=== PATIENT | male | born 1935 | race Caucasian/White ===

== ENCOUNTER → 2022-01-17 08:18 | Outpatient (BNVA) | payer MEDICARE, SELFPAY | PROVIDERS: Visit Provider Orthopaedic Surgery | DX: M43.17 Spondylolisthesis, lumbosacral region (principal) | CPT/HCPCS: 72110; 99204 ==

== ENCOUNTER 2022-01-23 06:00 | Outpatient (CLI) | payer MEDICARE, SELFPAY | END 2022-01-23 06:01 | disposition home or self-care (01) | LOC: RT 02-09 11:06 | PROVIDERS: PCP Nurse Practitioner Family; Visit Provider Orthopaedic Surgery | DX: Z01.89 Encounter for other specified special examinations (principal) | CPT/HCPCS: 93005 ==

== ENCOUNTER 2022-01-30 05:58 | Day surgery (SDC) | payer MEDICARE, SELFPAY ==
[2022-01-23 10:53] VITALS: BMI 30.8
--- NOTE | 2022-01-23 11:05 | ECG_ITS ---
[facility] Test Date: 2022-01-23 Pat Name: Moshe Gates Department: Room: Gender: Male Fund Manager: : 1935 Requested By: Sam Jacobs Order Number: [id number] Iftikhar MD: Charlie Laurent M.D. Measurements Intervals [place] Rate: 72 P: 218 ND: 271 QRS: -9 QRSD: 152 T: 116 QT: 406 QTc: 447 Interpretive Statements ELECTRONIC ATRIAL PACEMAKER LEFT BUNDLE BRANCH BLOCK [120+ ms QRS DURATION, 80+ ms Q/S IN V1/V2, 85+ ms R IN I/aVL/V5/V6] No previous ECG available for comparison Electronically Signed On 01-23-2022 18:13:07 CDT by Charlie Laurent M.D. [id number]
[2022-01-23 11:35] LABS: Anion Gap 12.9 (5-19); Blood Urea Nitrogen 18 mg/dL (8-23); Calcium 9.2 mg/dL (8.5-10.5); Carbon Dioxide 30 mmol/L (22-29); Chloride 106 mmol/L (98-107); Glucose 114 mg/dL (65-115); Osmolality Calculated 303 mOsm/kg (285-295); Potassium 3.9 mmol/L (3.5-5.1); Sodium 145 mmol/L (136-145)
--- NOTE | 2022-01-23 16:12 | P.ANESASSM_ITS ---
Pre-Anesthetic Assessment Height/Weight: Height 1.7 m Weight 89.358 kg Preop Diagnosis: Spinal stenosis Operation Date: 01/30/22 10:20 Proposed Procedures p Stimulator Removal [id number] M43.17(Not Applicable) - Sam Chino DO Familial anesthetic complications: None Was Beta Geovanny taken within 24 hours: N/A Was Clonidine taken within 24 hours: N/A Social No alcohol and No tobacco Exam alert, oriented x 3, clear to auscultation bilaterally and regular rate & rhythm Airway Submandibular: within normal limits Cervical ROM: within normal limits Mallampati: Class I Dentition: chipped History/ROS No significant complaints Pulmonary Sleep Apnea (No CPAP) CV/HEM Coronary Artery Disease (s/p stent) and Hypertension EKG 01/23/22 ?Interpretive Statements ELECTRONIC ATRIAL PACEMAKER LEFT BUNDLE BRANCH BLOCK? [120+ ms QRS DURATION, 80+ ms Q/S IN V1/V2, 85+ ms R IN I/aVL/V5/V6] No previous ECG available for comparison [id number] S/P AVR METS > 4 None reported Hepatic None reported GI Gastroesophageal Reflux Disease (Well controlled ) Metabolic Diabetes Mellitus and Hyperlipidemia [facility] Lower Back Pain and Osteoarthritis/DJD Spinal stenosis Neuropsych None reported Anesthetic Plan ASA status: 3 Anesthesia: Anesthesia Evaluation and General Other: We discussed risk and benefits of general anesthesia including PONV, sore throat (sometimes severe), corneal abrasion, positioning and peripheral nerve injuries, life threatening allergic reaction, post operative ICU admission requiring prolonged intubation, stroke, heart attack, , and rare incidences of recall. Patient consents to proceed with general anesthesia. Risk of > 500 ml blood loss (7ml/kg in children): No Medications/Allergies Home Medications Medication Instructions Recorded Confirmed Last Taken Type aspirin 325 mg tablet,delayed 325 mg PO DAILY 01/17/22 01/23/22 01/21/22 History release (Ecotrin) betamethasone dipropionate 0.05 % 1 applic topical DAILY PRN Rash 01/17/22 01/23/22 Unknown History topical cream ergocalciferol (vitamin D2) 1,250 1,250 mcg PO DAILY 01/17/22 01/23/22 Unknown History mcg (50,000 unit) capsule glipizide 2.5 mg tablet, extended 2.5 mg PO DAILY 01/17/22 01/23/22 Unknown History release 24 hr hydrochlorothiazide 12.5 mg capsule 12.5 mg PO DAILY 01/17/22 01/23/22 Unknown History irbesartan 150 mg tablet 150 mg PO DAILY 01/17/22 01/23/22 Unknown History omeprazole 20 mg capsule,delayed 20 mg PO DAILY 01/17/22 01/23/22 Unknown Hi story release rosuvastatin 40 mg tablet (Crestor) 40 mg PO DAILY 01/17/22 01/23/22 Unknown H istory Allergies Allergy/AdvReac Type Severity Reaction Status Date / Time No Known Allergies Allergy Verified 01/23/22 10:49 [facility] Anesthesia Social History Smoking and tobacco status: never smoked Data Anesthesia : 01/23/22 11:04 BMP 01/23/22 11:04 Sodium 145 Potassium 3.9 Chloride 106 Carbon Dioxide 30 H BUN 18 Creatinine 1.1 Glucose 114 Calcium 9.2 Cardiac Studies: No Data to Display
[2022-01-30] VITALS (11 sets, daily range): BP systolic 84–144; BP diastolic 52–95; PULSE 79–97; RESP 12–18; TEMP 36.3–36.4; O2SAT 93–98
--- NOTE | 2022-01-30 | SCC_ITS ---
Procedure done: 1. removal of spinal cord stimulator 2. removal of battery for spinal cord stimulator 7.7 seconds of fluoroscopic guidance, for a cumulative dose of 3.7 mGy, was provided to Dr. Chino by the radiology department. C-arm images of the thoracic spine were saved for the patient's permanent record. [facility]
--- NOTE | 2022-01-30 | XR_ITS ---
WS: [id number] INTRAOPERATIVE TECHNIQUE: 3 Spot fluoroscopic images for intraoperative purposes. FLUOROSCOPY TIME: 7.7 seconds CLINICAL INFORMATION: removal of spinal cord stimulator COMPARISON: None. FINDINGS: Intraoperative images for removal of spinal CORD stimulator. XR/XR thoracic spine 1V [id number] IMPRESSION: Images obtained for intraoperative purposes.
[2022-01-30 06:28] LABS: Glucose Point of Care 115 mg/dL (70-110)
--- NOTE | 2022-01-30 06:33 | P.ANESUD_ITS ---
Pre-Anesthetic Update Pre-Anesthetic Assessment: Date of Surgery/Procedure: 01/30/22 Preop Viv gnosis: Failed spinal cord stimulator Proposed Procedure: Operation Date: 01/30/22 07:00 Proposed Procedures p Stimulator Removal 97151/24803 M43.17(Not Applicable) - Sam Chino, DO Any changes to Pre-Anesthetic Assessment?: No Last Intake: Intake Last Liquid Date 01/29/22 Last Liquid Time 19:00 Last Solid Date 01/29/22 Last Solid Time 19:00 Vitals: Temperature 97.6 F 01/30/22 06:05 Temperature Source Temporal Artery S can 01/30/22 06:05 Pulse Rate 86 01/30/22 06:05 Respiratory Rate 18 01/30/22 06:05 Blood Pressure 128/75 01/30/22 06:05 Blood Pressure Eileen n 92 01/30/22 06:05 Pulse Oximetry 98 01/30/22 06:05 Oxygen Delivery Me thod 01/30/22 06:11 Exam: Pre-Anes Outpt Exam: alert, oriented x 3, clear to auscultation bilaterally and regular rate & rhythm Other Pertinent Information: Other Pertinent Information: Discussed with patient possible MAC. I discussed with the patient risks, goals, and benefits of MAC and general anesthesia. We discussed spectrum of MAC anesthesia including conversion to general as well as possibility of recall of intraoperative stimuli including discomfort/pain. Patient agrees to proceed with MAC. Cardiac Studies: No Data to Display
[2022-01-30] MEDS: sodium chloride 0.9% 1,000 ML 30 ML IV (06:36)
--- NOTE | 2022-01-30 06:55 | W.PM.OPSUD ---
Surgery/Procedure H&P Update DATE OF PROCEDURE: January 30, 2022 DATE H&P PERFORMED: 01/17/22 H&P UPDATE INFORMATION: I have reviewed H&P completed within last 30 days, I have examined patient prior to procedure and No changes to prior documentation PREOP DIAGNOSIS: Failed spinal cord stimulator PLANNED PROCEDURE: Operation Date: 01/30/22 07:00 Proposed Procedures p Stimulator Removal 58137/77493 M43.17(Not Applicable) - Sam Chino DO
[2022-01-30] MEDS: ceFAZolin 2,000 MG in sodium chloride 0.9% (plus) 50 ML 100 MG IV (07:04)
[2022-01-30] MEDS: vancomycin 1,000 MG SDV 1000 MG XX (07:35)
--- NOTE | 2022-01-30 08:02 | P.OP_ITS ---
Operative Report Date of procedure: January 30, 2022 Pre-op diagnosis: Preop Diagnosis Failed spinal cord stimulator Post-op diagnosis: same Procedure done: 1. removal of spinal cord stimulator 2. removal of battery for spinal cord stimulator Surgeon: Sam Chino Associate Quality Engineer: Tio Omer Associate Quality Engineer: The operating room surgical technologist, Tio Omer, WING was needed for his expertise with spine surgery. He was important and necessary throughout the procedure to complete in a safe and timely manner. He assisted with patient positioning prepping and draping tissue retraction suctioning of the operative field protection of the critical structures and tissue closure Estimated blood loss (mL): 5 Procedure: 1. removal of spinal cord stimulator 2. removal of battery for spinal cord stimulator Patient was brought to the procedure after undergoing anesthesia patient was prepped and draped normal sterile fashion. All areas impingement well-padded. Skin incision made over the right flank where the battery was. The incision was made down to the battery. The battery was identified and removed. Wires were cut. Extension was brought to the neurostimulator. The skin incision made over where the wires were tied in. The wires were identified the 2 areas where the wires were tied were identified. The wires were then pulled and the neurostimulator was removed. Wounds irrigated closed with Vicryl and Monocryl suture. Sterile dressings were applied patient was transferred to the PACU in stable condition.
[2022-01-30] MEDS: ePHEDrine 50 mg/mL Inj IVP (08:15)
--- NOTE | 2022-01-30 14:10 | ANE.PACU2 ---
Inpatient post-anesthesia follow up: Airway intact: Yes Vital signs: Temperature 97.5 F Pulse Rate 79 Respiratory Rate 18 Blood Pressure 125/69 Pulse Oximetry 96 Oxygen Delivery Me thod Room Air Oxygen Flow Rate 6 Fraction of Inspir ed Oxygen Hydration adequate: Yes Nausea and vomiting: No Pain level: 1 Mental status: Baseline
== END 2022-01-30 09:14 | disposition home or self-care (01) ==
PROVIDERS: PCP Nurse Practitioner Family; Visit Provider Orthopaedic Surgery
PROC: (CPT 63662; principal; 2022-01-30 07:00)
DX: T85.193A Other mechanical complication of implanted electronic neurostimulator, generator, initial encounter (principal); G47.30 Sleep apnea, unspecified; I25.10 Atherosclerotic heart disease of native coronary artery without angina pectoris; Z95.5 Presence of coronary angioplasty implant and graft; I10 Essential (primary) hypertension; I44.7 Left bundle-branch block, unspecified; Z79.82 Long term (current) use of aspirin
CPT/HCPCS: 63662; 63688; 36415; 36416; 72020; 76000; 80048; 82962; J2370; J2405; J2704; J3010; J3370; J3490; J7030

== ENCOUNTER → 2022-02-14 10:27 | Outpatient (BNVA) | payer MEDICARE, SELFPAY | PROVIDERS: PCP Nurse Practitioner Family; Visit Provider Orthopaedic Surgery | DX: M43.17 Spondylolisthesis, lumbosacral region (principal); Z47.89 Encounter for other orthopedic aftercare | CPT/HCPCS: 99024 ==

== ENCOUNTER 2022-03-23 10:04 | Outpatient (CLI) | payer MEDICARE, SELFPAY ==
--- NOTE | 2022-03-23 10:15 | CT_ITS ---
WS: [id number] CT LUMBAR myelogram TECHNIQUE: CT myelogram of the lumbar spine with coronal and sagittal reformatted images. CLINICAL INFORMATION: M43.17 - Spondylolisthesis, lumbosacral region COMPARISON: MRI 2015 DLP: 1304.[address] scans at [facility] use at least one of these dose optimization techniques: automated e xposure control; mA and/or kV adjustment per patient size (includes targeted exams where dose is matc hed to clinical indication); or iterative reconstruction. FINDINGS: Mild lumbar curve. Exaggeration normal lumbar lordosis. Grade 1 anterolisthesis L5 on S1 measuring 8. 8 mm progressed compared to 2015. Prior bony fusion at this level. Chronic anterior wedging at T12 un changed. Mild chronic anterior wedging at L1 unchanged. Slight retrolisthesis L1 on L2. Vacuum disc p henomenon L1-L3. Slight anterolisthesis L4 on L5 is unchanged. Adrenal glands are normal. Infrarenal abdominal aortic aneurysm measuring 2.1 x 2.2 CM. Sigmoid diverticulosis. L1-L2: Slight retrolisthesis L1 on L2. Mild disc bulging with osteophytic ridging. Slight effacement of ventral thecal sac with impingement on the subarticular recess. Moderate bilateral foraminal narro wing. L2-L3: Disc desiccation has progressed at this level. Mild disc bulging with osteophytic ridging and vacuum disc phenomenon. Mild central canal stenosis with impingement LEFT subarticular recess. Mild L EFT foraminal narrowing. Moderate facet arthropathy. L3-L4: Mild disc bulging and osteophytic ridging. Moderate central canal stenosis. This appears uncha nged compared to previous. Impingement traversing L4 nerve roots bilaterally. Moderate facet arthropa thy ligamentum flavum hypertrophy. Mild LEFT foraminal narrowing. L4-L5: Slight anterolisthesis. Severe central canal stenosis and impingement traversing L5 nerve root s. Advanced facet arthropathy with ligamentum flavum hypertrophy. This appears unchanged from previou s. Moderate RIGHT foraminal narrowing impinges the exiting L4 nerve root. LEFT foramen is patent. RIG HT foraminal narrowing has progressed. L5-S1: Grade 1 anterolisthesis has progressed. This results in severe central canal stenosis with imp ingement on the cauda equina nerve rootlets. This is progressed compared to previous. Moderate bilate ral bony foraminal narrowing. Advanced facet arthropathy. Visualized pelvic bony structures: Normal. Paravertebral soft tissues: Normal. CT/CT lumbar spine wo/w con [id number] IMPRESSION: 1. Severe central canal stenosis L4-L5 and L5-S1. This is progressed at L5-S1. Progressed anterolisthesis L5-S1 with chronic spondylolysis measuring 9 mm wit h prior interbody and posterior bony fusion. 2. Moderate bilateral L5-S1 bony foraminal narrowing. Moderate RIGHT L3-L4 for aminal narrowing appears progressed. 3. Moderate central canal stenosis L3-L4 with narrowing of the LEFT subarticul ar recess appears stable. Mild LEFT L3-L4 foraminal narrowing. 4. No other remarkable interval changes.
--- NOTE | 2022-03-23 10:15 | IR_ITS ---
WS: [id number] MYELOGRAM LUMBAR SPINE Fluoroscopic guided lumbar myelogram CLINICAL INFORMATION: M43.17 - Spondylolisthesis, lumbosacral region COMPARISON: None. TECHNIQUE: The procedure, including risks, benefits, and complications, were discussed with the patie nt who agreed to proceed. A timeout was performed to confirm correct patient, procedure, and site. Using sterile technique, the patient was prepped and draped in the usual sterile fashion. After admin istration of local anesthesia using 1% preservative-free lidocaine and using fluoroscopic guidance, a 22-gauge spinal needle was advanced into the subarachnoid space at the L2-L3 level. Subsequently 12 cc of Omnipaque 240 was administered into the thecal sac. The needle was removed and hemostasis was a chieved. Spot fluoroscopic images were obtained. FLUOROSCOPIC TIME: 7min [id number] # of spot films: 6 Spot fluoroscopic images demonstrate: Osteopenia. Advanced spondylitic changes lumbar spine. Hypertro phic changes lumbar spine. Tortuous calcified aorta. Advanced multilevel degenerative disc disease wi th chronic anterior wedging in the lower thoracic and upper lumbar spine. Disc space narrowing throug hout the lumbar spine. Anterolisthesis L5 on S1 with prior fusion measuring [address] myelogram report for additional detail. IR/IR myelogram sp lumbar [id number] IMPRESSION: 1. Uncomplicated lumbar myelogram. 2. Please see CT report for anatomic detail.
[2022-03-23] MEDS: iohexol 240 mg/mL 50 mL Btl INTRATHECA (11:34)
== END 2022-03-23 10:05 | disposition home or self-care (01) ==
PROVIDERS: PCP Nurse Practitioner Family; Visit Provider Orthopaedic Surgery
DX: M43.17 Spondylolisthesis, lumbosacral region (principal); M48.061 Spinal stenosis, lumbar region without neurogenic claudication; M48.07 Spinal stenosis, lumbosacral region
CPT/HCPCS: 62304; 72133; Q9966

== ENCOUNTER → 2022-04-13 09:56 | Outpatient (BNVA) | payer MEDICARE, SELFPAY | PROVIDERS: PCP Nurse Practitioner Family; Visit Provider Orthopaedic Surgery | DX: M43.17 Spondylolisthesis, lumbosacral region (principal) | CPT/HCPCS: 99214 ==

== ENCOUNTER → 2022-05-10 14:06 | Outpatient (BNVA) | payer MEDICARE, SELFPAY | PROVIDERS: PCP Nurse Practitioner Family; Visit Provider Internal Medicine Cardiovascular Disease | DX: I42.8 Other cardiomyopathies (principal); G47.30 Sleep apnea, unspecified; Z95.0 Presence of cardiac pacemaker; D69.3 Immune thrombocytopenic purpura; Z95.2 Presence of prosthetic heart valve; E11.9 Type 2 diabetes mellitus without complications; Z79.84 Long term (current) use of oral hypoglycemic drugs; I44.7 Left bundle-branch block, unspecified; R94.31 Abnormal electrocardiogram [ECG] [EKG] | CPT/HCPCS: 93005; 99204 ==

== ENCOUNTER 2022-05-23 12:12 | Outpatient (CLI) | payer MEDICARE, SELFPAY | END 2022-05-23 12:13 | disposition home or self-care (01) | LOC: RT 05-29 12:13 | PROVIDERS: PCP Nurse Practitioner Family; Visit Provider Orthopaedic Surgery | DX: Z13.6 Encounter for screening for cardiovascular disorders (principal); I44.7 Left bundle-branch block, unspecified; Z95.0 Presence of cardiac pacemaker | CPT/HCPCS: 93005 ==

== ENCOUNTER 2022-05-29 15:27 | Inpatient (IN) | payer MEDICARE, SELFPAY ==
[2022-05-23 09:30] VITALS: BMI 31.6
--- NOTE | 2022-05-23 09:45 | ECG_ITS ---
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 Measurements Intervals [place] Rate: 73 P: 184 ID: [id number] QRS: -27 QRSD: 145 T: 124 QT: 405 QTc: 447 Interpretive Statements ELECTRONIC ATRIAL PACEMAKER LEFT BUNDLE BRANCH BLOCK [120+ ms QRS DURATION, 80+ ms Q/S IN V1/V2, 85+ ms R IN I/aVL/V5/V6] Compared to ECG 01/23/2022 11:25:32 No significant changes Electronically Signed On 05-23-2022 11:58:59 BELT MACHINE OPERATOR by Charlie Laurent M.D. [id number]
--- NOTE | 2022-05-23 09:45 | ANES.PREANE2 ---
Pre-Anesthetic Assessment Height/Weight: Height 1.7 m Weight 91.626 kg Preop Diagnosis: Failed spinal cord stimulator Operation Date: 05/29/22 09:20 Proposed Procedures p Spinal Fusion L2-PELVIS [id number]/[id number]/53628/24476/33062/M43.17(Not Applicable) - Sam Chino DO s Lumbar Spine Decompression(Not Applicable) - Samleah Chino, Familial anesthetic complications: NOne Social No alcohol and No tobacco Exam alert, oriented x 3, clear to auscultation bilaterally and regular rate & rhythm Airway Mallampati: Class III Dentition: partials Pulmonary Sleep Apnea CV/HEM Coronary Artery Disease (stent) Prosthetic aortic valve, 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 Will need to acquire platelets Risk of > 500 ml blood loss (7ml/kg in children): Yes, adequate IV access and fluids planned Medications/Allergies Home Medications Medication Instructions Recorded Confirmed Last Taken Type glipizide 2.5 mg tablet, extended 2.5 mg PO DAILY 01/17/22 05/23/22 05/23/22 History release 24 hr hydrochlorothiazide 12.5 mg capsule 12.5 mg PO DAILY 01/17/22 05/23/22 05/23/22 History irbesartan 150 mg tablet 150 mg PO DAILY 01/17/22 05/23/22 05/23/22 History omeprazole 20 mg capsule,delayed 20 mg PO DAILY 01/17/22 05/23/22 05/23/22 History release rosuvastatin 40 mg tablet (Crestor) 40 mg PO DAILY 01/17/22 05/23/22 05/23/22 History aspirin 81 mg tablet,delayed 81 mg PO DAILY 05/10/22 05/23/22 05/22/22 History release (Adult Aspirin Regimen) eskpscmt-pjt-mkzps acid 300 1 tab PO DAILY 05/10/22 05/23/22 05/23/22 History mcg-lycopene 600 mcg-lutein 300 mcg tablet (Centrum Silver Ultra Men's) Intraoperative neuromonitoring #1 ea 05/22/22 Unknown Rx Allergies Allergy/AdvReac Type Severity Reaction Status Date / Time No Known Allergies Allergy Verified 05/23/22 09:25 [facility] Anesthesia Medical History Chronic ITP (idiopathic thrombocytopenia) Complete heart block Diabetes Hx of type 2 diabetes mellitus Nonrheumatic aortic (valve) stenosis Pacemaker Primary hypertension Recurrent syncope Sleep apnea Surgical History History of open heart surgery 2017 Hx of aortic valve replacement S/P insertion of spinal cord stimulator Family History Brother Cancer Lung disease Brother Cancer Lung disease Father Cancer Mother Diabetes Denies family history of CAD (coronary artery disease) Clotting disorder Dementia Chronic kidney disease (CKD) Suicide Anesthesia complication Bleeding disorder Stroke Social History Smoking and tobacco status: former smoker Alcohol intake: current Alcohol intake frequency: holidays/special occasions only Data Anesthesia Cardiac Studies: No Data to Display
[2022-05-23 10:12] LABS: Anion Gap 15.3 (5-19); Blood Urea Nitrogen 20 mg/dL (8-23); Calcium 9.6 mg/dL (8.5-10.5); Carbon Dioxide 25 mmol/L (22-29); Chloride 103 mmol/L (98-107); Glucose 167 mg/dL (65-115); Osmolality Calculated 294 mOsm/kg (285-295); Potassium 4.3 mmol/L (3.5-5.1); Sodium 139 mmol/L (136-145)
[2022-05-29] VITALS (25 sets, daily range): BP systolic 100–134; BP diastolic 57–80; PULSE 74–93; RESP 12–24; TEMP 36.2–36.7; O2SAT 94–99; BMI 32.7
--- NOTE | 2022-05-29 | XR_ITS ---
WS: [id number] Lumbar spine, C-arm fluoroscopy, 05/29/2022 Clinical Data: L2 to pevlis instrumented fusion Comparison: Lumbar spine, 01/17/2022 Findings: Dr. Chino performed a posterior lumbosacral fusion. XR/XR lumbar spine 2-3V* [id number] Impression: Posterior lumbosacral fusion.
[2022-05-29] MEDS: sodium chloride 0.9% 1,000 ML 30 ML IV (11:34)
[2022-05-29 11:50] LABS: Glucose Point of Care 122 mg/dL (70-110)
--- NOTE | 2022-05-29 11:52 | P.ANESUD_ITS ---
Pre-Anesthetic Update Pre-Anesthetic Assessment: Date of Surgery/Procedure: 05/29/22 Preop Viv gnosis: Spondylolisthesis L5-S1, lumbar stenosis with neurogenic claudication Proposed Procedure: Operation Date: 05/29/22 12:40 Proposed Procedures p Spinal Fusion L2-PELVIS 24433/[id number]/43148/[id number]/82098/60912/M43.17(Not Applicable) - Samleah Chino, DO s Lumbar Spine Decompression(Not Applicable) - Samleah Chino, DO Any changes to Pre-Anesthetic Assessment?: No Last Intake: Intake Last Liquid Date 05/28/22 Last Liquid Time 22:00 Last Solid Date 05/28/22 Last Solid Time 18:00 Vitals: Temperature 97.6 F 05/29/22 11:22 Temperature Source Temporal Artery S can 05/29/22 11:22 Pulse Rate 76 05/29/22 11:22 Respiratory Rate 18 05/29/22 11:22 Blood Pressure 119/68 05/29/22 11:22 Blood Pressure Eileen n 85 05/29/22 11:22 Pulse Oximetry 95 05/29/22 11:22 Oxygen Delivery Me thod 05/29/22 11:31 Exam: Pre-Anes Outpt Exam: alert, oriented x 3, clear to auscultation bilaterally and regular rate & rhythm Cardiac Studies: No Data to Display
--- NOTE | 2022-05-29 12:02 | PM.HP ---
Providers/Chief Complaint Primary Care Provider: Lena Benedict Chief Complaint: L2-PELVIS FUSION W/DECOMPRESSION L4/5 L5/S1 History of Present Illness Moshe Gates is a 86 year old male He rates his pain a 5/10 at todays visit. He reports lower back pain. He explains he is unable to stand, or walk for long distances. He reports he is unable to sleep at night due to his back pain. Patient has a recent CT Myelogram and is here today to go over results and further treatment plan. Review of Systems General: Reports: 10 or more systems reviewed and unremarkable except in HPI and below Const: Reports: change in sleep pattern and daytime sleepiness (sleep apnea); Denies: fatigue Eyes: Denies: change in vision ENMT: Reports: change in hearing; Denies: tinnitus, disequilibrium or epistaxis Card: Reports: swelling of feet/ankles; Denies: chest pain, palpitations, irregular heart rhythm, edema, lightheadedness, syncope, pre-syncope or dyspnea on exertion Resp: Denies: dyspnea GI: Denies: hematemesis, hematochezia or melena : Denies: hematuria Musc: Reports: back pain, joint pain and muscle cramps; Denies: neck pain, extremity pain or muscle weakness Skin/Breast: Denies: rash or pruritus Neuro: Denies: headache(s), numbness in extremities, weakness in extremities, lack of coordination, difficulty walking, frequent falls, dizziness or vertigo Psych: Denies: anxiety or depression Endo: Denies: polyuria, polydipsia, tired all the time or excessive sweating Viraj/Lymph: Denies: easy bruising or easy bleeding Medications/Allergies Home Medications Medication Instructions Recorded Confirmed Last Taken Type glipizide 2.5 mg tablet, extended 2.5 mg PO DAILY 01/17/22 05/23/22 05/28/22 History release 24 hr hydrochlorothiazide 12.5 mg capsule 12.5 mg PO DAILY 01/17/22 05/23/22 05/28/22 History irbesartan 150 mg tablet 150 mg PO DAILY 01/17/22 05/23/22 05/28/22 History omeprazole 20 mg capsule,delayed 20 mg PO DAILY 01/17/22 05/23/22 05/29/22 07:00 History release rosuvastatin 40 mg tablet (Crestor) 40 mg PO DAILY 01/17/22 05/23/22 05/28/22 History aspirin 81 mg tablet,delayed 81 mg PO DAILY 05/10/22 05/23/22 05/22/22 History release (Adult Aspirin Regimen) hxbgelis-txx-lfxue acid 300 1 tab PO DAILY 05/10/22 05/23/22 05/28/22 History mcg-lycopene 600 mcg-lutein 300 mcg tablet (Centrum Silver Ultra Men's) Intraoperative neuromonitoring #1 ea 05/22/22 Unknown Rx Allergies Allergy/AdvReac Type Severity Reaction Status Date / Time No Known Allergies Allergy Verified 05/23/22 09:25 PFSH Acute PFSH: Medical History Chronic ITP (idiopathic thrombocytopenia) Complete heart block Diabetes Hx of type 2 diabetes mellitus Nonrheumatic aortic (valve) stenosis Pacemaker Primary hypertension Recurrent syncope Sleep apnea Surgical History History of open heart surgery 2017 Hx of aortic valve replacement S/P insertion of spinal cord stimulator Family History Brother Cancer Lung disease Brother Cancer Lung disease Father Cancer Mother Diabetes Denies family history of CAD (coronary artery disease) Clotting disorder Dementia Chronic kidney disease (CKD) Suicide Anesthesia complication Bleeding disorder Stroke Social History Smoking and tobacco status: former smoker Alcohol intake: current Alcohol intake frequency: holidays/special occasions only Vitals/I&O/Wt Last Vital Signs Temp 97.6 F 05/29/22 11:22 Pulse 76 05/29/22 11:22 Resp 18 05/29/22 11:22 BP 119/68 05/29/22 11:22 Pulse Ox 95 05/29/22 11:22 O2 Del Method 05/29/22 11:31 Physical Exam Narrative: Narrative:?? EXAM NARRATIVE: EX AM NARRATIVE: CONS TITUTIONAL: This i s a normal patient in no acute distr ess. ?PSYCH: The p atient is oriented to person, place and time. ?SKIN: T he skin is of norm al color and textu re. ?NEURO: Patien t is neurovascular ly intact. ?MUSCUL OSKELETAL / EXTREM ITIES: ?1.? lnjury (s):?removal of sp inal cord stimulat or, removal of bat leana for spinal co rd stimulator. DOS :01/30/22. Data 05/23/22 09:40 A&P Assessment and plan (1) Lumbar stenosis with neurogenic claudication: L2 to pelvis fusion with decompression L3-S1 Attestations Medical Necessity Statement*: failed conservative tx Coding Level of Care Code Acute Code for Chg Fwd Diagnoses Lumbar stenosis with neurogenic claudication M48.062
[2022-05-29] MEDS: ceFAZolin 2,000 MG in sodium chloride 0.9% (plus) 50 ML 100 MG IV ×3 (12:33→23:09)
[2022-05-29] MEDS: tranexamic acid 1,000 mg/10mL SDV 1000 MG IV (13:30)
[2022-05-29] MEDS: vancomycin 1,000 MG SDV 1000 MG XX (13:39)
[2022-05-29] MEDS: heparin, porcine 1,000 unit/mL INJ 10 mL 10000 UNIT IRRIGATION (13:39)
[2022-05-29 13:40] LABS: Hematocrit 40.5 % (42.0-52.0); Hemoglobin 13.3 g/dL (11.7-16.6)
[2022-05-29] MEDS: thrombin 5,000 unit SDV 5000 UNIT XX (15:33)
--- NOTE | 2022-05-29 17:10 | SUR.PHASEI ---
1652 PT TO PACU 5 PT SLEEPS WITH GOOD RESP EFFORT BUT OCCLUDES AIRWAY FREQUENTLY NEEDING MANUAL JAW THRUST, ORAL AIRWAY PLACE D BY CONTACT CENTRE SUPERVISOR, WITH GOOD RESULTS, SATS 97% ON 8L MASK MONITOR SR WITH BBB NOTED, NO ECTOPY IV TO RT FA #20 JELCO WITH 200ML NS AT MODERATE RATE PER GRAVITY PIID TO RT HAND #20 WELL , ARTERIAL LINE TO LT WRIST NOT CONNECTED TO MONITOR PER PRE CERTIFICATION SPECIALIST FLUSHES EASILY AND WELL, LT HAND PINK WARM WITH FAST CAP REFILL LESS THAN 3 SECONDS, PT WITH DRESSING TO LOWER BACK D/I ABD BINDER IN PLACE , OG CATHETER TO DEPENDANT DRAINAGE WITH STATLOCK TO RT INNER THIGH APPROX 30 ML CLEAR YELLOW URINE NOTED TO TUBING AND BAG, PT WITH BILAT SCDS ON AND WORKING 1715 PT AWAKES AND ORAL AIRWAY OUT, PT OPENS EYES BUT DOES NOT SPEAK, FOLLOW COMMANDS TO MOVE BILAT FEET TO COMMAND STRONGLY AND EQUALLY, WITH GOOD DORSAL FLEXATION AND EXTENSION NOTED. 1723 PT ROLLED TO RT SIDE WITH ASSIST OF 2 RNS, LOG ROLLED DRESSING REMAINS D/I PT NOW VERBALLY RESPONDS KNOWS NAME AND THAT HE HAD SURGURY RATES PAIN TO BACK AT 7
--- NOTE | 2022-05-29 17:15 | P.CONIM_ITS ---
Providers/Reason For Consult Consulting Physician/Specialty*: Robyn Foster MD/Internal Medicine Reason for Consult*: Medical management Attending Physician: Sam Chino DO Primary Care Provider: Lena Benedict History of Present Illness History of Present Illness Moshe Gates is a 86 year old male with past medical history of chronic ITP, complete heart block status post pacemaker, diabetes mellitus type 2 takes glipizide, aortic valve stenosis status post aortic valve replacement, hypertension, obstructive sleep apnea and lumbar stenosis after failing conservative management presented to the hospital today for thoracic to lumbar fusion. Operative note is pending at this time. Estimated blood loss about 800 cc. Patient was seen in PACU after surgery and is still slightly drowsy. On 8 L nasal cannula at this time. He is still recovering. Medicine has been consu lted for medical management. States he is in pain. Just given dilaudid by RN. Medications/Allergies Home Medications Medication Instructions Recorded Confirmed Last Taken Type glipizide 2.5 mg tablet, extended 2.5 mg PO DAILY 01/17/22 05/23/22 05/28/22 History release 24 hr hydrochlorothiazide 12.5 mg capsule 12.5 mg PO DAILY 01/17/22 05/23/22 05/28/22 History irbesartan 150 mg tablet 150 mg PO DAILY 01/17/22 05/23/22 05/28/22 History omeprazole 20 mg capsule,delayed 20 mg PO DAILY 01/17/22 05/23/22 05/29/22 07:00 History release rosuvastatin 40 mg tablet (Crestor) 40 mg PO DAILY 01/17/22 05/23/22 05/28/22 History aspirin 81 mg tablet,delayed 81 mg PO DAILY 05/10/22 05/23/22 05/22/22 History release (Adult Aspirin Regimen) [id number] acid 300 1 tab PO DAILY 05/10/22 05/23/22 05/28/22 History mcg-lycopene 600 mcg-lutein 300 mcg tablet (Centrum Silver Ultra Men's) Intraoperative neuromonitoring #1 ea 05/22/22 Unknown Rx Bone Growth Stimulator [id number] #1 ea 05/29/22 Unknown Rx Allergies Allergy/AdvReac Type Severity Reaction Status Date / Time No Known Allergies Allergy Verified 05/23/22 09:25 Current Medications Generic Name Dose Route Start Last Admin Trade Name Freq PRN Reason Stop Dose Admin Sodium Chloride 1,000 mls @ 30 mls/hr 05/29/22 11:15 05/29/22 15:25 Sodium Chloride 0.9% IV 05/30/22 11:14 Infused .Q24H MARTHA Infusion PFSH Acute PFSH: Medical History Chronic ITP (idiopathic thrombocytopenia) Complete heart block Diabetes Hx of type 2 diabetes mellitus Nonrheumatic aortic (valve) stenosis Pacemaker Primary hypertension Recurrent syncope Sleep apnea Surgical History History of open heart surgery 2017 Hx of aortic valve replacement S/P insertion of spinal cord stimulator Family History Brother Cancer Lung disease Brother Cancer Lung disease Father Cancer Mother Diabetes Denies family history of CAD (coronary artery disease) Clotting disorder Dementia Chronic kidney disease (CKD) Suicide Anesthesia complication Bleeding disorder Stroke Social History Smoking and tobacco status: former smoker Alcohol intake: current Alcohol intake frequency: holidays/special occasions only Vitals/I&O/Wt Last Vital Signs Temp 97.1 F L 05/29/22 16:54 Pulse 87 05/29/22 17:05 Resp 19 H 05/29/22 17:05 BP 117/65 05/29/22 17:05 Pulse Ox 99 05/29/22 17:05 O2 Del Method 05/29/22 17:05 O2 Flow Rate 8 05/29/22 17:05 05/29/22 05/29/22 05/29/22 06:59 14:59 22:59 Intake Total 50 / 50 2500 / 2550 Output Total 1050 / 1050 Balance 50 / 50 1450 / 1500 Physical Exam Narrative: General: Drowsy male still recovering from anesthesia, seen laying in bed in PACU. HEENT: Normocephalic, atraumatic, EOMI, breathing 8 L nasal cannula. Slowly being weaned down. Cardio: Paced rhythm, normal S1-S2, no gross murmurs. Respiratory: Clear to auscultation bilaterally and diminished at the bases. GI: Abdomen soft, nontender, nondistended, bowel sounds + Extremities: No bilateral lower extremity edema Back: Covered with Band-Aid. He is postop. Urinary Catheter Management: Cisneros: Cath Placed During This Visit: yes Urinary Catheter Date of Insertion: 05/29/22 Urinary Catheter Time of Insertion: 12:42 Data 05/29/22 13:00 05/23/22 09:40 A&P Assessment and plan (1) Lumbar stenosis with neurogenic claudication: (2) S/P AVR (aortic valve replacement): (3) Chronic ITP (idiopathic thrombocytopenia): (4) Diabetes: (5) Pacemaker: (6) Hx of type 2 diabetes mellitus: (7) Complete heart block: (8) Sleep apnea: (9) Non-ischemic cardiomyopathy: (10) Spondylolisthesis at L5-S1 level: Plan #Status post T to L fusion postop day 0 #History of aortic valve replacement #Complete heart block status post pacemaker #Diabetes mellitus type 2 #Obstructive sleep apnea #Post op Blood loss anemia -We will check baseline labs for the patient ? Check CBC CMP, magnesium, phosphorus -Continue to wean down oxygen as able ? We will check CBC every 12 hours ? Sliding scale insulin low-dose intensity sliding scale ? Hold home glipizide ? Hold home aspirin until cleared by surgery ? Hold hydrochlorothiazide at this time ? Hold irbesartan and restart gradually ? Continue Protonix 20 oral daily - May hold rosuvastatin today as well ? Continue normal saline 100 cc/h ? Check morning labs tomorrow morning - Pain management - Physical therapy and rest of management as per orthopedic surgery. - Medicine will continue to follow -Diet advance as tolerated once recovered from anesthesia. Consult Attestations Medical Necessity Statement: Defer to Primary Team Coding Level of Care Code Acute Code for Chg Fwd Diagnoses Lumbar stenosis with neurogenic claudication M48.062 S/P AVR (aortic valve replacement) Z95.2 Chronic ITP (idiopathic thrombocytopenia) D69.3 Diabetes E11.9 Pacemaker Z95.0 Hx of type 2 diabetes mellitus Z86.39 Complete heart block I44.2 Sleep apnea G47.30 Non-ischemic cardiomyopathy I42.8 Spondylolisthesis at L5-S1 level M43.17
[2022-05-29] MEDS: HYDROmorphone 1 mg/mL INJ 1 mL 0.5 MG IVP ×2 (17:26→17:45)
--- NOTE | 2022-05-29 17:27 | PM.OP ---
Operative Report Date of procedure: May 29, 2022 Pre-op diagnosis: Preop Diagnosis Spondylolisthesis L5-S1, lumbar stenosis with neurogenic claudication Post-op diagnosis: same Procedure done: 1. L2-Pelvis fusion 2. L2- S1 instrumentation 3. Lumbo pelvic fixation 4. L3/4 Laminectomy with partial facetectectomies 5. L4/5 Laminectomy with partial facetectectomies 6. L5/S1 Laminectomy with partial facetectectomies 7. use oc computer navigation/ stereotactic for spine 8. bone marrow aspirate from the right iliac crest from separate incision 9. Use of autograft 10 use of allograft Surgeon: Sam Chino Cotton Presser: Tio Omer Cotton Presser: The surgical services manager, Tio Omer, PAC was needed for his expertise under the microscope. He was important and necessary throughout the procedure to complete in a safe and timely manner. He assisted with patient positioning prepping and draping tissue retraction suctioning of the operative field protection of the dural sac and tissue closure Estimated blood loss (mL): 800 Procedure: 1. L2-Pelvis fusion 2. L2- S1 instrumentation 3. Lumbo pelvic fixation 4. L3/4 Laminectomy with partial facetectectomies 5. L4/5 Laminectomy with partial facetectectomies 6. L5/S1 Laminectomy with partial facetectectomies 7. use oc computer navigation/ stereotactic for spine 8. bone marrow aspirate from the right iliac crest from separate incision 9. Use of autograft 10 use of allograft Patient is brought to the operative suite after undergoing anesthesia was placed in the prone position. All areas impingement well-padded. Patient was prepped and draped normal sterile fashion. Skin incision made from L2 down to S1. The thoracolumbar fascia was identified. The subperiosteal dissection was then made out from L2 down to L5 out to the transverse processes bilaterally. And then the sacral ala was identified as well. In the S1 foramen was identified as well. Extension was brought to obtaining bone marrow aspirate from right iliac crest. This was done by using the Nora cell bone marrow aspiration kit from right iliac crest. The awl was inserted bone marrow was aspirated the hole was pushed in further. And then the needle was backed out in 1 mm increments pulling the bone marrow aspirate 20 cc of bone marrow aspirate was obtained. This murmur aspirate was later mixed with the bone graft. Next attention was brought to placing the fiducial for the computer navigated screws. 2 pins were placed in the right iliac crest. These pins were later removed at the end of the case. The fiducial was then attached to these 2 pins. Once these fusion was attached to C-arm was brought in and C-arm was brought around the patient. The information from serum was then loaded in the computer and this information was used to place this computer navigated screws. Attention was then brought to placing screws. The awl gearshift was used to this computer navigated and placed into the pedicle. Then the pedicle feeler was used followed by placement of the computer navigated screw. This was done at S1 bilaterally, L5 bilaterally, L4 bilaterally, L3 bilaterally, and L2 bilaterally,. Extension was brought to placing the iliac screws into the pelvis. This was done by going through the sacral ala into the SI joint into the pelvis. There is done using the computer navigated probe. The probe was placed followed by the pedicle feeler followed by placement of the screw. This was done bilaterally in the iliac screws. Next attention was brought to performing the laminectomies. The microscope was brought into the rongeur was used to take down the spinous processes from L3 down to S1. Patient has significant step-off at the L5-S1 level where the spondylolisthesis was. The spinous processes remove at L3 the high-speed bur was then used to take down the lamina of L3 as well as the medial aspect of facet joints. This was done starting at L3-4. The L3 lamina was taken down followed by using the curved curettes and Kerrisons to remove the lamina and then the ligamentum flavum was taken down from L3-L4. Medial aspect of facet joints were taken down with a high-speed bur as well as the Kerrison rongeurs and then the L3 nerve root was palpated felt to be adequately decompressed bilaterally. In the L4 nerve root around the L4 pedicle was felt to be adequately decompressed. The spinous processes remove at L4 the high-speed bur was then used to take down the lamina of L4 as well as the medial aspect of facet joints. This was done starting at L4/5. The L4 lamina was taken down followed by using the curved curettes and Kerrisons to remove the lamina and then the ligamentum flavum was taken down from L3-L4. Medial aspect of facet joints were taken down with a high-speed bur as well as the Kerrison rongeurs and then the L4 nerve root was palpated felt to be adequately decompressed bilaterally. In the L5 nerve root around the L5 pedicle was felt to be adequately decompressed. The spinous processes remove at L5 the high-speed bur was then used to take down the lamina of L5 as well as the medial aspect of facet joints. This was done starting at L5/S1. The L5 lamina was taken down followed by using the curved curettes and Kerrisons to remove the lamina and then the ligamentum flavum was taken down from L3-L4. Medial aspect of facet joints were taken down with a high-speed bur as well as the Kerrison rongeurs and then the L5 nerve root was palpated felt to be adequately decompressed bilaterally. In the S1 nerve root around the S1 pedicle was felt to be adequately decompressed. Next attention was brought to placing the rods into the tulips of the screws. The rods were placed into the caps. From L2 down to the S1 into the iliac screws. This was done bilaterally. The end caps were then tightened down and torqued into position. And locked into position once this was in good position then attention was brought to irrigation. A small dural tear which was repaired with a stitch. This was a Nurolon stitch. And then DuraGen and DuraSeal were placed in order to facilitate the dural tear. Prior to placing the DuraSeal a Valsalva maneuver was made and there was no leakage. Was brought to decorticating the transverse processes of L2 down to the sacral ala. This was done with a high-speed bur. And then bone graft was packed in the lateral gutters this was both autograft and allograft. The allograft was ostial amp. Once this was placed then wound was closed in layered fashion with 0 Vicryl 2-0 Vicryl and Monocryl suture. Sterile dressings were applied and patient was transferred to the PACU in stable condition.
--- NOTE | 2022-05-29 17:29 | ANE.PACU2 ---
Inpatient post-anesthesia follow up: Airway intact: Yes Vital signs: Temperature 97.1 F Pulse Rate 87 Respiratory Rate 19 Blood Pressure 117/65 Pulse Oximetry 99 Oxygen Delivery Me thod Simple Mask Oxygen Flow Rate 8 Fraction of Inspir ed Oxygen Hydration adequate: Yes Nausea and vomiting: No Pain level: 4 Mental status: Baseline
[2022-05-29] MEDS: sodium chloride 0.9% 1,000 ML 125 ML IV (17:52)
--- NOTE | 2022-05-29 18:38 | SUR.PHASEI ---
1745 HOSPITALIST AT BEDSIDE PT NOW IN 100% PACED RYTHM [id number] PT C/O OF PAIN TO BACK, HOB REMAINS FLAT, DRESSING D/I PT MOVES BILAT FEET STRONGLY, NO FACIAL DROOPING NOTED, SEE PAIN MED GIVEN ORDERED PT TO HAVE NS DRIP ON FLOOR PER HOSPITALIST, WILL HANG NEW IV BAG BEFORE TRANSFER PER DR REQUEST, PT DENIES CHEST PAIN OR HEAVINESS, PT QUESTIONED BY HOSPITALIST , DR AWARE OF PT RYTHM ON ADMIT WAS SR WITH BBB. NO ECTOPY NOTED THEN OR NOW. 1815 PT UPDATED IN WAITING ROOM X 2 NOW AND WHEELED BY W/C TO PT ROOM 263 BY STAFF, PT NOW TO FLOOR PER BED PT AWAKE ALERT C/O OF PAIN BUT RESTING QUIETLY FACE SCALE 3-4 SEE PAIN MED GIVEN EARLIER PT OK WITH SOMETHING TO DRINK AND PO PAIN MED ON FLOOR NURSE AT BEDSIDE PT LOG ROLLED AND DRESSING TO BACK D/I NO HEMATOMA NOTED, PT MOVEMENTS TO LOWER EXTREMITIES STRONG AND EQUAL WITH NO CHANGES NOTED, OG WITH APPROXIMATELY 75ML CLEAR YELLOW URINE, NOT EMPTIED, HANDOFF AT BEDSIDE, LT WRIST ARTLINE SITE D/I NO HEMATOMA NOTED. IV PATENT AT KVO RATE PER GRAVITY.
[2022-05-29] MEDS: HYDROcodone-acetaminophen 5-325 mg Tablet PO (18:47)
[2022-05-29] MEDS: ketorolac 30 mg/mL INJ IVP (19:50)
[2022-05-29 19:55] LABS: Basophils % 0.2 %; Hematocrit 37.9 % (42.0-52.0); Hemoglobin 11.8 g/dL (11.7-16.6); Lymphocytes # 0.5 10^3/uL (0.8-4.8); Lymphocytes % 5.9 %; Mean Corpuscular HGB Conc 31.1 g/dL (30.0-36.0); Mean Corpuscular Hemoglobin 29.2 pg (28.0-34.0); Mean Corpuscular Volume 93.8 fl (80-94); Mean Platelet Volume 10.7 fL (7.4-10.4); Monocytes # 0.2 10^3/uL (0.2-0.9); Monocytes % 2.8 %; Neutrophils % 90.1 %; Nucleated Red Blood Cells % 0 %; Platelet Count 102 10^3/cmm (130-400); Red Blood Count 4.04 10^6/uL (4.1-5.3); Red Cell Distribution Width 12.8 % (12.1-15.1); White Blood Count 8.7 10^3/uL (4.0-10.0)
[2022-05-29 20:09] LABS: Alanine Aminotransferase 25 U/L (0-41); Albumin Level 3.8 g/dL (3.5-5.2); Alkaline Phosphatase 52 U/L (40-130); Anion Gap 13.2 (5-19); Aspartate Amino Transferase 26 U/L (0-40); Blood Urea Nitrogen 23 mg/dL (8-23); Calcium 8.2 mg/dL (8.5-10.5); Carbon Dioxide 22 mmol/L (22-29); Chloride 107 mmol/L (98-107); Globulin 2.3 g/dL (1.3-4.6); Glucose 205 mg/dL (65-115); Magnesium 1.6 mg/dL (1.7-2.3); Osmolality Calculated 296 mOsm/kg (285-295); Phosphorus 4.1 mg/dL (2.5-4.5); Potassium 4.2 mmol/L (3.5-5.1); Sodium 138 mmol/L (136-145); Total Bilirubin 0.3 mg/dL (0.15-1.2); Total Protein 6.1 g/dL (6.6-8.7)
[2022-05-29 20:54] LABS: Glucose Point of Care 176 mg/dL (70-110)
[2022-05-29] MEDS: morphine 4 mg/mL SDV 1 mL 2 MG IVP (21:52)
[2022-05-30] VITALS (10 sets, daily range): BP systolic 95–136; BP diastolic 61–80; PULSE 81–98; RESP 15–17; TEMP 36.7–37.1; O2SAT 90–95
[2022-05-30] MEDS: morphine 4 mg/mL SDV 1 mL 2 MG IVP ×2 (00:11→02:48)
[2022-05-30] MEDS: alum-mag-hydroxide-sime 30 mL UDC PO (00:56)
[2022-05-30 02:39] LABS: Basophils % 0.1 %; Hematocrit 34.6 % (42.0-52.0); Hemoglobin 10.8 g/dL (11.7-16.6); Lymphocytes # 0.9 10^3/uL (0.8-4.8); Lymphocytes % 8.6 %; Mean Corpuscular HGB Conc 31.2 g/dL (30.0-36.0); Mean Corpuscular Hemoglobin 29.3 pg (28.0-34.0); Mean Platelet Volume 11.2 fL (7.4-10.4); Monocytes # 0.8 10^3/uL (0.2-0.9); Neutrophils # 8.48 10^3/uL (1.8-7.7); Neutrophils % 82.8 %; Nucleated Red Blood Cells % 0 %; Platelet Count 105 10^3/cmm (130-400); Red Blood Count 3.68 10^6/uL (4.1-5.3); Red Cell Distribution Width 12.9 % (12.1-15.1); White Blood Count 10.2 10^3/uL (4.0-10.0)
[2022-05-30] MEDS: sodium chloride 0.9% 1,000 ML 125 ML IV (02:47)
[2022-05-30 03:12] LABS: Anion Gap 16.3 (5-19); Blood Urea Nitrogen 24 mg/dL (8-23); Calcium 7.7 mg/dL (8.5-10.5); Carbon Dioxide 21 mmol/L (22-29); Chloride 106 mmol/L (98-107); Glucose 167 mg/dL (65-115); Magnesium 1.7 mg/dL (1.7-2.3); Osmolality Calculated 296 mOsm/kg (285-295); Potassium 4.3 mmol/L (3.5-5.1); Sodium 139 mmol/L (136-145)
[2022-05-30] MEDS: ketorolac 30 mg/mL INJ IVP ×2 (06:07→23:19)
[2022-05-30 06:42] LABS: Glucose Point of Care 156 mg/dL (70-110)
--- NOTE | 2022-05-30 06:50 | P.PN_ITS ---
Subjective Subjective: POD 1 Pt resting comfortably. Reports mild back pain reports mild left leg pain. He denies any headaches. His family is present this morning. Denies any shortness of breath, chest pain. Vitals/I&O/Wt Last Vital Signs Temp 98.8 F 05/30/22 04:00 Pulse 91 05/30/22 04:00 Resp 15 05/30/22 04:00 BP 120/80 05/30/22 04:00 Pulse Ox 90 05/30/22 04:00 O2 Del Method 05/30/22 04:00 O2 Flow Rate 1.5 05/29/22 20:31 05/29/22 05/29/22 05/30/22 14:59 22:59 06:59 Intake Total 50 / 50 2700 / 2750 1000 / 3750 Output Total 1300 / 1300 300 / 1600 Balance 50 / 50 1400 / 1450 700 / 2150 Weight last 48 hrs Weight 209 lb Physical Exam Narrative: Patient presents alert and oriented x3 with a good general appearance normal mood and affect. Normal coordination normal stability. Mild tenderness around the incisional site with the incision appear to be clean and dry. No signs of erythema or drainage. No signs of infection. Patient denies any fevers or chills. 4/5 motor strength both lower extremities with negative straight leg raise bilaterally. Calves are supple no medial thigh tenderness. Pulses are 2+ at the dorsalis pedis and posterior tibial region. Good capillary refill throughout normal sensation light touch both lower extremities. Urinary Catheter Management: Cisneros: Cath Placed During This Visit: yes Reason for Continuing Indwelling Catheter: Required Immobilization for Trauma or Surgery or Anesthesia Urinary Catheter Date of Insertion: 05/29/22 Urinary Catheter Time of Insertion: 12:42 Data 05/30/22 01:34 05/30/22 01:34 A&P Assessment and plan (1) Status post lumbar spinal fusion: Have physical therapy work with mobilizing. Encourage incentive spirometry for pulmonary toilet. technology services manager to consult for placement. Discontinue Cisneros catheter after physical therapy session. Work for discharge to rehab facility or home based on Physical Therapy recommendation. Attestations Medical Necessity Statement*: Discharge possibly tomorrow Coding Level of Care Code Acute Code for Chg Fwd Diagnoses Status post lumbar spinal fusion Z98.1
[2022-05-30] MEDS: HYDROcodone-acetaminophen 5-325 mg Tablet PO ×4 (08:23→22:00)
[2022-05-30] MEDS: atorvastatin 40 mg Tablet 80 MG PO (09:46)
[2022-05-30] MEDS: aspirin 81 mg EC Tablet PO (09:46)
[2022-05-30] MEDS: losartan 50 mg Tablet PO (09:46)
[2022-05-30] MEDS: hydroCHLOROthiazide 25 mg Tablet 12.5 MG PO (09:46)
[2022-05-30] MEDS: ceFAZolin 2,000 MG in sodium chloride 0.9% (plus) 50 ML 100 MG IV ×2 (09:47→16:25)
[2022-05-30] MEDS: pantoprazole DR 40 mg Tablet PO (09:47)
[2022-05-30] MEDS: docusate sodium 100 mg Capsule PO ×2 (09:47→17:53)
[2022-05-30] MEDS: insulin lispro 100 unit/1 mL SUBCUT ×4 (09:54→23:34)
[2022-05-30 11:51] LABS: Glucose Point of Care 200 mg/dL (70-110)
--- NOTE | 2022-05-30 11:59 | PC.CHAP ---
Pastoral Care Encounter/Spiritual Assessment Type of Contact [] Declined computer numerical control programmer visit [] Patient/Family/Request visit [] Outpatient visit [] Follow-up visit [] Physician referral [] Code/Alert [x] Routine visit [] Staff referral [] Actively dying [] Patient sleeping [] Family support [] [] Out of room [] Palliative care [] [] Receiving care in room [] Pre-surgical visit [] Trauma [] Long length of stay [] ICU visit [] Other: Relational/Emotional Strength x] Patient feels connected with others/family/visitors/staff [] Distress [] Loneliness/isolation [] Abandonment Spirituality of Patient [x] Person of Fanta [] Attends Advent of their Fanta [x] Believes in Prayer [] Reads Bible or Confucianism materials [] There are Spiritual issues to be addressed Skiing Teacher Interventions x[] Non-anxious presence [] Spiritual/emotional support [] Crisis/trauma care [] Spiritual counseling [] Bereavement support [] Provided bereavement packet [] Provided Bible/devotional materials [] Provided toy/stuffed animal, coloring book to patient or family member [] Provided Communion [] Anointing/[place] [] Salvation [x] Completed spiritual assessment [] Other: Impact on Illness or Injury [] Angry [] Fearful [] Anxious [] Often cries [] Exhaustion [] Unable to work [] Unable to attend denominational [] Unable to walk/stand [] Unable to read [] Unable to drive [] Unable to eat/drink [] Unable to sleep [] Unable to be with family [] Patient intubated [] Other: Summary Time spent with patient 10 min
--- NOTE | 2022-05-30 15:19 | PM.PN ---
Subjective Subjective: seen this am pt and state they are not interested in facility placement and nor in home health but will talk to case management he states he has some back pain but its manageable at this time sitting up comfortably in chair Vitals/I&O/Wt Last Vital Signs Temp 98.8 F 05/30/22 08:29 Pulse 88 05/30/22 12:00 Resp 16 05/30/22 09:18 BP 102/66 05/30/22 12:00 Pulse Ox 94 05/30/22 12:00 O2 Del Method 05/30/22 09:18 O2 Flow Rate 1.5 05/30/22 08:00 05/30/22 05/30/22 05/30/22 06:59 14:59 22:59 Intake Total 1000 / 3750 1350.417 / 1350.417 Output Total 300 / 1600 Balance 700 / 2150 1350.417 / 1350.417 Weight last 48 hrs Weight 94.801 kg Physical Exam Narrative: General: AOx 3 sitting up in recliner HEENT: Normocephalic, atraumatic, EOMI,room air Cardio: Paced rhythm, normal S1-S2, no gross murmurs. Respiratory: Clear to auscultation bilaterally and diminished at the bases. GI: Abdomen soft, nontender, nondistended, bowel sounds + Extremities: No bilateral lower extremity edema Back: Covered with Band-Aid. He is postop. Urinary Catheter Management: Cisneros: Cath Placed During This Visit: yes, but has since been removed by the nurse Reason for Continuing Indwelling Catheter: Decision to DC Catheter Urinary Catheter Date of Insertion: 05/29/22 Urinary Catheter Time of Insertion: 12:42 Date Urinary Catheter Removed: 05/30/22 Time Urinary Catheter Discontinued: 13:05 Data 05/30/22 01:34 05/30/22 01:34 A&P Assessment and plan (1) Lumbar stenosis with neurogenic claudication: (2) S/P AVR (aortic valve replacement): (3) Chronic ITP (idiopathic thrombocytopenia): (4) Diabetes: (5) Pacemaker: (6) Hx of type 2 diabetes mellitus: (7) Complete heart block: (8) Sleep apnea: (9) Non-ischemic cardiomyopathy: (10) Spondylolisthesis at L5-S1 level: Plan #Status post T to L fusion postop day 0 #History of aortic valve replacement #Complete heart block status post pacemaker #Diabetes mellitus type 2 #Obstructive sleep apnea #Post op Blood loss anemia - Hb 10.1 this AM. Recheck in evening. ? Sliding scale insulin low-dose intensity sliding scale ? Hold home glipizide ? Hold home aspirin until cleared by surgery ? Hold hydrochlorothiazide at this time ? Hold irbesartan and restart gradually ? Continue Protonix 20 oral daily - May hold rosuvastatin today as well - Stop IV fluids ? Check morning labs tomorrow morning - Pain management - Physical therapy and rest of management as per orthopedic surgery. - Medicine will continue to follow Full Code Attestations Medical Necessity Statement*: Defer to primary team Coding Level of Care Code Acute Code for Chg Fwd Diagnoses Lumbar stenosis with neurogenic claudication M48.062 S/P AVR (aortic valve replacement) Z95.2 Chronic ITP (idiopathic thrombocytopenia) D69.3 Diabetes E11.9 Pacemaker Z95.0 Hx of type 2 diabetes mellitus Z86.39 Complete heart block I44.2 Sleep apnea G47.30 Non-ischemic cardiomyopathy I42.8 Spondylolisthesis at L5-S1 level M43.17
[2022-05-30 17:38] LABS: Glucose Point of Care 182 mg/dL (70-110)
[2022-05-30 18:37] LABS: Hematocrit 31.6 % (42.0-52.0)
[2022-05-30 23:56] LABS: Glucose Point of Care 158 mg/dL (70-110)
[2022-05-31] VITALS: BP 100/65; PULSE 78; RESP 18; TEMP 36.8; O2SAT 98
[2022-05-31 03:37] VITALS: BP 93/57; PULSE 93; RESP 15; TEMP 36.4; O2SAT 91
[2022-05-31 05:55] LABS: Basophils % 0.3 %; Eosinophils # 0.1 10^3/uL (0.0-0.8); Eosinophils % 1.3 %; Hematocrit 29.3 % (42.0-52.0); Hemoglobin 9.3 g/dL (11.7-16.6); Lymphocytes # 1.7 10^3/uL (0.8-4.8); Lymphocytes % 15.3 %; Mean Corpuscular HGB Conc 31.7 g/dL (30.0-36.0); Mean Corpuscular Hemoglobin 29.4 pg (28.0-34.0); Mean Corpuscular Volume 92.7 fl (80-94); Monocytes # 1.1 10^3/uL (0.2-0.9); Monocytes % 10.1 %; Neutrophils % 72.4 %; Nucleated Red Blood Cells % 0 %; Platelet Count 88 10^3/cmm (130-400); Red Blood Count 3.16 10^6/uL (4.1-5.3); Red Cell Distribution Width 13.5 % (12.1-15.1); White Blood Count 10.8 10^3/uL (4.0-10.0)
[2022-05-31 06:16] LABS: Anion Gap 14.6 (5-19); Blood Urea Nitrogen 31 mg/dL (8-23); Calcium 7.5 mg/dL (8.5-10.5); Carbon Dioxide 21 mmol/L (22-29); Chloride 105 mmol/L (98-107); Glucose 138 mg/dL (65-115); Osmolality Calculated 293 mOsm/kg (285-295); Potassium 3.6 mmol/L (3.5-5.1); Sodium 137 mmol/L (136-145)
--- NOTE | 2022-05-31 06:25 | P.PN_ITS ---
Subjective Subjective: POD 2 Patient resting comfortably. Denies back pain or leg pain. Denies any headaches, shortness of breath or chest pain. He is wanting to go home Vitals/I&O/Wt Last Vital Signs Temp 97.6 F 05/31/22 03:37 Pulse 93 05/31/22 03:37 Resp 15 05/31/22 03:37 BP 93/57 05/31/22 03:37 Pulse Ox 91 05/31/22 03:37 O2 Del Method 05/31/22 03:37 O2 Flow Rate 1.5 05/30/22 08:00 05/30/22 05/30/22 05/31/22 14:59 22:59 06:59 Intake Total 1830.417 / 1830.417 410 / 2240.417 Balance 1830.417 / 1830.417 410 / 2240.417 Weight last 48 hrs Weight 209 lb Physical Exam Narrative: Patient presents alert and oriented x3 with a good general appearance normal mood and affect. Normal coordination normal stability. Mild tenderness around the incisional site with the incision appear to be healing nicely. No signs of erythema or drainage. No signs of infection. Patient denies any fevers or chills. 5/5 motor strength both lower extremities with negative straight leg raise bilaterally. Calves are supple no medial thigh tenderness. Pulses are 2+ at the dorsalis pedis and posterior tibial region. Good capillary refill throughout normal sensation light touch both lower extrem ities. Urinary Catheter Management: Cisneros: Cath Placed During This Visit: yes, but has since been removed by the nurse Reason for Continuing Indwelling Catheter: Decision to DC Catheter Urinary Catheter Date of Insertion: 05/29/22 Urinary Catheter Time of Insertion: 12:42 Date Urinary Catheter Removed: 05/30/22 Time Urinary Catheter Discontinued: 13:05 Data 05/31/22 05:11 05/31/22 05:11 A&P Assessment and plan (1) Status post lumbar spinal fusion: Physical therapy work with mobilization. Discussed with the nurse to discontinue the Hemovac drain change the Silverlon dressing. Laxative of choice to help with bowel movement. Will discharge home later this morning. Have the patient follow-up in 1 week's time for wound check. Encouraged him to take the incentive spirometry at home for pulmonary toilet. Call if he is having problems. Attestations Medical Necessity Statement*: Discharge home later this morning Coding Level of Care Code Acute Code for Chg Fwd Diagnoses Status post lumbar spinal fusion Z98.1
[2022-05-31 06:37] LABS: Glucose Point of Care 138 mg/dL (70-110)
[2022-05-31] MEDS: HYDROcodone-acetaminophen 5-325 mg Tablet PO (06:40)
[2022-05-31 08:10] VITALS: BP 100/62; PULSE 88; RESP 17; TEMP 36.8; O2SAT 94
[2022-05-31 08:14] VITALS: BP 123/65; PULSE 65; RESP 18; TEMP 36.3; O2SAT 94
--- NOTE | 2022-05-31 08:37 | PM.PN ---
Subjective Subjective: Seen this morning. Patient dressed up in a street clothes ready to go home. He has been discharged by orthopedics already. Blood pressure is stable. Vitals/I&O/Wt Last Vital Signs Temp 97.3 F L 05/31/22 08:14 Pulse 65 05/31/22 08:14 Resp 18 05/31/22 08:14 BP 123/65 05/31/22 08:14 Pulse Ox 94 05/31/22 08:14 O2 Del Method 05/31/22 08:14 O2 Flow Rate 1.5 05/30/22 08:00 05/30/22 05/31/22 05/31/22 22:59 06:59 14:59 Intake Total 410 / 2240.417 Balance 410 / 2240.417 Weight last 48 hrs Weight 94.801 kg Physical Exam Narrative: Sitting up in chair dressed up in street clothes Lungs clear to auscultation bilaterally Normal S1-S2, abdomen soft Unable to fully examine patient as patient is already dressed up ready to go. He is already discharged. Urinary Catheter Management: Cisneros: Cath Placed During This Visit: yes, but has since been removed by the nurse Reason for Continuing Indwelling Catheter: Decision to DC Catheter Urinary Catheter Date of Insertion: 05/29/22 Urinary Catheter Time of Insertion: 12:42 Date Urinary Catheter Removed: 05/30/22 Time Urinary Catheter Discontinued: 13:05 Data 05/31/22 05:11 05/31/22 05:11 A&P Assessment and plan (1) Lumbar stenosis with neurogenic claudication: (2) S/P AVR (aortic valve replacement): (3) Chronic ITP (idiopathic thrombocytopenia): (4) Diabetes: (5) Pacemaker: (6) Hx of type 2 diabetes mellitus: (7) Complete heart block: (8) Sleep apnea: (9) Non-ischemic cardiomyopathy: (10) Spondylolisthesis at L5-S1 level: Plan #Status post T to L fusion postop day 0 #History of aortic valve replacement #Complete heart block status post pacemaker #Diabetes mellitus type 2 #Obstructive sleep apnea #Post op Blood loss anemia -Hemoglobin stable. ? Sliding scale insulin low-dose intensity sliding scale ? Patient may restart his home medications after discharge. He is to follow-up with its primary care doctor and orthopedic surgery after discharge. - Pain management - Physical therapy and rest of management as per orthopedic surgery. - Medicine will continue to follow Full Code Attestations Medical Necessity Statement*: Defer to primary team. Coding Level of Care Code Acute Code for Chg Fwd Diagnoses Lumbar stenosis with neurogenic claudication M48.062 S/P AVR (aortic valve replacement) Z95.2 Chronic ITP (idiopathic thrombocytopenia) D69.3 Diabetes E11.9 Pacemaker Z95.0 Hx of type 2 diabetes mellitus Z86.39 Complete heart block I44.2 Sleep apnea G47.30 Non-ischemic cardiomyopathy I42.8 Spondylolisthesis at L5-S1 level M43.17
[2022-05-31] MEDS: aspirin 81 mg EC Tablet PO (08:49)
[2022-05-31] MEDS: atorvastatin 40 mg Tablet 80 MG PO (08:49)
[2022-05-31] MEDS: pantoprazole DR 40 mg Tablet PO (08:49)
[2022-05-31] MEDS: docusate sodium 100 mg Capsule PO (08:52)
[2022-05-31 08:53] VITALS: BP 123/65
[2022-05-31] MEDS: hydroCHLOROthiazide 25 mg Tablet 12.5 MG PO (08:53)
[2022-05-31] MEDS: losartan 50 mg Tablet PO (08:53)
[2022-05-31 10:54] VITALS: BP 123/65
--- NOTE | 2022-06-01 16:02 | PM.DCS ---
Discharge Providers Date of Admission: 05/29/22 15:27 Date of Discharge: May 31, 2022 Attending Provider at Admission: Sam Chino DO Attending Provider at Discharge: Sam Chino DO Primary Care Provider: Lena Benedict Diagnoses at Discharge Discharge Diagnosis (1) Lumbar stenosis with neurogenic claudication: Status: Acute (2) S/P AVR (aortic valve replacement): Status: Acute (3) Chronic ITP (idiopathic thrombocytopenia): Status: Acute (4) Diabetes: Status: Acute (5) Pacemaker: Status: Acute (6) Hx of type 2 diabetes mellitus: Status: Acute (7) Complete heart block: Status: Acute (8) Sleep apnea: Status: Acute (9) Non-ischemic cardiomyopathy: Status: Acute (10) Spondylolisthesis at L5-S1 level: Status: Resolved Reason for Visit Reason for Visit: L2-PELVIS FUSION W/DECOMPRESSION L4/5 L5/S1 Hospital Course Hospital Course pain controlled Physical Exam Urinary Catheter Management: Cisneros: Cath Placed During This Visit: yes, but has since been removed by the nurse Reason for Continuing Indwelling Catheter: Decision to DC Catheter Urinary Catheter Date of Insertion: 05/29/22 Urinary Catheter Time of Insertion: 12:42 Date Urinary Catheter Removed: 05/30/22 Time Urinary Catheter Discontinued: 13:05 Discharge Data Studies Completed and Pending Completed Studies During Hospitalization Category Date Time Status XR lumbar spine 2-3V* [id number] Routine Exams 05/29/22 Completed Radiology Impressions Lumbar Spine X-Ray 05/29/22 00:00 Impression: Posterior lumbosacral fusion. Laboratory Results WBC 10.8 10^3/uL (4.0-10.0) H 05/31/22 05:11 RBC 3.16 10^6/uL (4.1-5.3) L 05/31/22 05:11 Hgb 9.3 g/dL (11.7-16.6) L 05/31/22 05:11 Hct 29.3 % (42.0-52.0) L 05/31/22 05:11 MCV 92.7 fl (80-94) 05/31/22 05:11 MCH 29.4 pg (28.0-34.0) 05/31/22 05:11 MCHC 31.7 g/dL (30.0-36.0) 05/31/22 05:11 RDW 13.5 % (12.1-15.1) 05/31/22 05:11 Plt Count 88 10^3/cmm (130-400) L 05/31/22 05:11 MPV 11.0 fL (7.4-10.4) H 05/31/22 05:11 Neut % (Auto) 72.4 % 05/31/22 05:11 Lymph % (Auto) 15.3 % 05/31/22 05:11 Kidder % (Auto) 10.1 % 05/31/22 05:11 Eos % (Auto) 1.3 % 05/31/22 05:11 Baso % (Auto) 0.3 % 05/31/22 05:11 Neut # (Auto) 7.80 10^3/uL (1.8-7.7) H 05/31/22 05:11 Lymph # (Auto) 1.7 10^3/uL (0.8-4.8) 05/31/22 05:11 Kidder # (Auto) 1.1 10^3/uL (0.2-0.9) H 05/31/22 05:11 Eos # (Auto) 0.1 10^3/uL (0.0-0.8) 05/31/22 05:11 Baso # (Auto) 0.0 10^3/uL (0.0-0.1) 05/31/22 05:11 Nucleated RBC % (auto) 0 % 05/31/22 05:11 Nucleated RBCs # 0.0 /100WBC 05/31/22 05:11 Sodium 137 mmol/L (136-145) 05/31/22 05:11 Potassium 3.6 mmol/L (3.5-5.1) 05/31/22 05:11 Chloride 105 mmol/L (98-107) 05/31/22 05:11 Carbon Dioxide 21 mmol/L (22-29) L 05/31/22 05:11 Anion Gap 14.6 (5-19) 05/31/22 05:11 BUN 31 mg/dL (8-23) H 05/31/22 05:11 Creatinine 1.4 mg/dL (0.7-1.2) H 05/31/22 05:11 GFR Calculation Not Reportable 05/31/22 05:11 Glucose 138 mg/dL (65-115) H 05/31/22 05:11 POC Glucose 138 mg/dL (70-110) H 05/31/22 06:30 Calculated Osmolality 293 mOsm/kg (285-295) 05/31/22 05:11 Calcium 7.5 mg/dL (8.5-10.5) L 05/31/22 05:11 Phosphorus 4.1 mg/dL (2.5-4.5) 05/29/22 19:28 Magnesium 1.7 mg/dL (1.7-2.3) 05/30/22 01:34 Total Bilirubin 0.3 mg/dL (0.15-1.2) 05/29/22 19:28 AST 26 U/L (0-40) 05/29/22 19:28 ALT 25 U/L (0-41) 05/29/22 19:28 Alkaline Phosphatase 52 U/L (40-130) 05/29/22 19:28 Total Protein 6.1 g/dL (6.6-8.7) L 05/29/22 19:28 Albumin 3.8 g/dL (3.5-5.2) 05/29/22 19:28 Globulin 2.3 g/dL (1.3-4.6) 05/29/22 19:28 Vitals Last Vital Signs Temp 97.3 F L 05/31/22 08:14 Pulse 65 05/31/22 08:14 Resp 18 05/31/22 08:14 BP 123/65 05/31/22 10:54 Pulse Ox 94 05/31/22 08:14 O2 Del Method 05/31/22 08:14 O2 Flow Rate 1.5 05/30/22 08:00 Discharge Plan Discharge Patient Disposition: Home Condition: Stable Prescriptions: New hydrocodone-acetaminophen 5-325 mg Tablet 1 - 2 tab PO Q4H PRN (Reason: Moderate To Severe Pain) Qty: 40 0RF Continued glipizide 2.5 mg tablet extended release 24hr 2.5 mg PO DAILY hydrochlorothiazide 12.5 mg capsule 12.5 mg PO DAILY irbesartan 150 mg tablet 150 mg PO DAILY rosuvastatin [Crestor] 40 mg tablet 40 mg PO DAILY omeprazole 20 mg capsule,delayed release(DR/EC) 20 mg PO DAILY aspirin [Adult Aspirin Regimen] 81 mg tablet,delayed release (DR/EC) 81 mg PO DAILY Centrum Silver Ultra Men's 300-600-300 mcg tablet 1 tab PO DAILY (DME) Intraoperative neuromonitoring See Rx Instructions .Route .MEDSUPPLY Qty: 1 0RF Rx Instructions: As directed (DME) Bone Growth Stimulator E0748 See Rx Instructions .Route .MEDSUPPLY Qty: 1 0RF Rx Instructions: As directed Discharge Orders: Discharge Order (Routine); Ordered 05/31/22 Ordered By: Tio Omer Other Ambulatory Orders: DME: Walker (Order) Location: None Selected Ordered By: Sam Chino Physical Therapy Eval and Treat Outpatient (Order) Timeframe: 3 Weeks Facility: [facility] - Location: Physical Therapy Ordered By: Tio Omer Referrals: [facility] [Other] (The [facility] has your outpatient therapy orders and will be contacting you to arrange your appointments. They are aware that you want it at the [facility]. If you have any questions please contact them at [phone].) Sam Chino, [Physician] - 06/06/22 1:00 pm Discharge Diet: Advance as tolerated Discharge Activity: Limit activity as instructed Patient Instructions: Hydrocodone/Acetaminophen (By mouth) (Vicodin, Finger, Lortab), Lumbar Spinal Fusion (GEN), Opioid Safety Activity Restrictions/Additional Instructions: Thank you for choosing [facility] for your care! The following is a list of instructions, from your provider, to follow upon your discharge to ensure you have the optimal recovery from your recent injury or surgery. Follow-up care is a [place] part of your treatment and safety. Be sure to make and go to all appointments and call your doctor if you are having problems. If you do not already have a follow-up appointment made, call Dr. Chino's] office in the next 1-3 days to make follow up appointment for 1 weeks at [phone]. It is also a good idea to know your test results and keep a list of the medicines you take. Medications will be prescribed for you at your provider's discretion. These medications are to be used as instructed; if they are taken more often that prescribed they will not be refilled early and in most cases will not be refilled at all. > When a refill is needed, you should contact jaclyn khan 2-3 business days before your prescription runs out. Medications will NOT be refilled by clinical rehabilitation liaison providers after hours! > Many pain medications contain Tylenol (Acetaminophen). Do not consume more than 4,000 mg of Tylenol per day in total with any combination of medications. > Pain medications can cause constipation. Please use an over the counter stool softener as directed, while taking pain medications. Consult your local pharmacist with questions or recommendations on stool softeners. If constipation persists, contact our office or your primary care provider. > While under our care, you are not to receive pain medications or other controlled substances from any other provider unless our office is notified and approves. Any attempts to do so will result in refusal to prescribe any further pain medications and possible dismissal from our practice. ? Walking is essential for the healing process after surgery. We would like you to slowly advance your walking. This should be done on relatively flat clear ground (inside or out) or can be done on a treadmill. Remember this goal does not have to happen all at once, slowly increase your distance and duration. This can be broken into more more than one walk per day as tolerated. Patients who walk as directed after surgery rarely require Physical Therapy. In the unlikely event this issue arises your provider will direct hospital staff to make the appropriate arrangements. ? No lifting over 5 pounds {a gallon of milk) or bending/twisting until further notice. Each of these activities places an unnecessary amount of stress onto the body and can impede the delicate healing process. > Instead of bending at the waist, keep your back straight and bend at the knees. > Instead of twisting your torso, keep your back straight and turn your entire body with your feet. ? You may sleep in any position which makes you comfortable. Many patients find comfort sleeping in a reclining chair. It is not abnormal to have difficulty sleeping for the first several weeks following your surgery. We recommend trying Benadry! or Tylenol PM as directed to help with your sleeping difficulties. Both medications are over the counter and available without prescription. ? NO SMOKING!!! Smoking dramatically increases the probability of developing postoperative wound infections. ? Common complaints after lumbar and/or thoracic spine surgery include, but are not limited to: numbness and/or tingling in the legs, pain around the incision and surrounding tissues, muscle spasms, or stiffness of the middle to low back. Contact our office if these symptoms persist or if an acute change occurs. ? No driving for the first 3-5days, and not while taking narcotics until seen at your follow-up appointment and cleared. There are no restrictions for riding on short trips, however if you take a longer trip, arrangements should be made to make regular stops to get out of the vehicle and stretch . ? Swelling is an unfortunate event that will take place with any surgery and is the primary source of your postoperative discomfort. While walking and regular approved activities helps control inflammation, there are additional steps you can take to minimize swelling. > Place ice over the surgical site and surrounding tissue for twenty minutes, followed by applying a low/medium heat (heating pad) for an additional twenty minutes every 1-2 hours as needed for painrelief. > You may use of over the counter anti-inflammatory medications (Ibuprofen, Motrin, Aleve, Advil, etc) as directed on the package label. These types of medicines will significantly reduce the amount of discomfort you experience after surgery from swelling. It should be noted that if you have and allergy to any of these medications, or a history of ulcers or kidney disease you should consult you primary care provider prior to starting these medications. Discharge Attestations Time Spent in Discharge Care*: less than 30 min Quality Metrics Clinical Quality Measures [ No reported AMI, CVA or VTE this stay] Coding Level of Care Code Acute [facility] FW [place] note Diagnoses Lumbar stenosis with neurogenic claudication M48.062 S/P AVR (aortic valve replacement) Z95.2 Chronic ITP (idiopathic thrombocytopenia) D69.3 Diabetes E11.9 Pacemaker Z95.0 Hx of type 2 diabetes mellitus Z86.39 Complete heart block I44.2 Sleep apnea G47.30 Non-ischemic cardiomyopathy I42.8 Spondylolisthesis at L5-S1 level M43.17
== END 2022-05-31 10:15 | disposition home or self-care (01) | DRG 460 ==
LOC: MEDSURG 15:28
PROVIDERS: Internal Medicine; Admitting Provider Orthopaedic Surgery; PCP Nurse Practitioner Family; Visit Provider Orthopaedic Surgery
PROC: 0SG107J Fusion of 2 or more Lumbar Vertebral Joints with Autologous Tissue Substitute, Posterior Approach, Anterior Column, Open Approach (ICD-10-PCS; principal; 2022-05-29 12:40)
PROC: 0SG107J Fusion of 2 or more Lumbar Vertebral Joints with Autologous Tissue Substitute, Posterior Approach, Anterior Column, Open Approach (ICD-10-PCS; CPT 63005; 2022-05-29 12:40)
DX: M48.062 Spinal stenosis, lumbar region with neurogenic claudication (principal); D69.3 Immune thrombocytopenic purpura; I44.2 Atrioventricular block, complete; I42.8 Other cardiomyopathies; D62 Acute posthemorrhagic anemia; E11.9 Type 2 diabetes mellitus without complications; I35.0 Nonrheumatic aortic (valve) stenosis; Z95.0 Presence of cardiac pacemaker; I10 Essential (primary) hypertension; Z95.2 Presence of prosthetic heart valve; Z96.82 Presence of neurostimulator; Z87.891 Personal history of nicotine dependence; G47.33 Obstructive sleep apnea (adult) (pediatric); M43.17 Spondylolisthesis, lumbosacral region; Z79.84 Long term (current) use of oral hypoglycemic drugs; Z79.82 Long term (current) use of aspirin
CPT/HCPCS: 36415; 36416; 51702; 72100; 76000; 80048; 80053; 82962; 83735; 84100; 85014; 85018; 85025; 96372; 97116; 97161; 97530; C1713; J0690; J1100; J1170; J1644; J1815; J1885; J2270; J2405; J2704; J2710; J3010; J3370; J3490; J7030; P9045

== ENCOUNTER 2022-05-31 16:47 | Emergency (ER) | payer MEDICARE, SELFPAY ==
--- NOTE | 2022-05-31 16:50 | W.ED.GENADLT ---
HPI - General Adult General: Chief complaint: General Medical Stated complaint: BLEEDING FROM SURGICAL SITE Time Seen by Provider: 05/31/22 16:50 History of Present Illness: Mr Gates is an 86-year-old gentleman with history of chronic ITP and recent hospitalization for lumbar spinal surgery presenting to the emergency department due to concern over bleeding. He denies fall or other specific provoking event. He would not have noticed symptoms if his had not pointed it out. Denies chest pain, shortness of breath, other bleeding, lightheadedness, syncope, or pain outside expected. No other specific changes in health, exacerbating, or alleviating factors identified. Onset (ago): hour(s) Location: back Severity: mild Review of Systems General: Reports: 10 or more systems reviewed and unremarkable except in HPI and below PFSH ED PFSH: Medical History Chronic ITP (idiopathic thrombocytopenia) Complete heart block Diabetes Hx of type 2 diabetes mellitus Nonrheumatic aortic (valve) stenosis Pacemaker Primary hypertension Recurrent syncope Sleep apnea Surgical History History of open heart surgery 2017 Hx of aortic valve replacement S/P insertion of spinal cord stimulator Family History Brother Cancer Lung disease Brother Cancer Lung disease Father Cancer Mother Diabetes Denies family history of CAD (coronary artery disease) Clotting disorder Dementia Chronic kidney disease (CKD) Suicide Anesthesia complication Bleeding disorder Stroke Social History Smoking and tobacco status: former smoker Alcohol intake: current Alcohol intake frequency: holidays/special occasions only Physical Exam Const: COMMON NORMALS: alert GENERAL APPEARANCE: cooperative and well developed HENMT: COMMON NORMALS: normocephalic and atraumatic HEAD & SCALP: normocephalic and atraumatic Eye: COMMON NORMALS: conjunctivae normal CONJUNCTIVA: Yes conjunctivae normal SCLERA: sclerae normal Neck/C-Spine: COMMON NORMALS: supple GENERAL: Yes trachea midline Resp: COMMON NORMALS: clear to auscultation bilaterally EFFORT & INSPECTION: Yes able to speak in complete sentences AUSCULTATION: clear to auscultation bilaterally Cardio: COMMON NORMALS: regular rate and regular rhythm RATE: regular rate RHYTHM: regular rhythm GI: COMMON NORMALS: Soft to palpation PALPATION: Yes Soft to palpation and No Tenderness to palpation present (GI) Back/Pelvis: OTHER: Surgical incision appears well-healing with small amount of nonactive bleeding that saturated the adhesive on the lower aspect of the dressing. Extremity: GENERAL: Yes normal exam except as noted and No edema Neuro: COMMON NORMALS: moves all extremities SENSORIUM/ORIENTATION: Yes alert and No Orientation impaired Course Vital Signs: Vital signs: Vital Signs Temperature 98.3 F 05/31/22 17:17 Pulse Rate 91 05/31/22 17:43 Respiratory Rate 16 05/31/22 17:43 Blood Pressure 113/59 05/31/22 17:43 Pulse Oximetry 93 05/31/22 17:43 Oxygen Delivery Me thod 05/31/22 17:39 [facility] - General Adult Medical Decision Making 86-year-old gentleman with recent back surgery presenting due to concern for postoperative bleeding. Exam as above. No evidence of systemic significant blood loss. Incision appears well-healing, the sutures appear intact and there was a small area between sutures that was likely the source of bleeding. No hematoma appreciated or evidence of infection. Discussed with spine surgery and dressing replaced. Plan to have patient follow-up in clinic. The results of ED evaluation were discussed with the patient including prescriptions and/or symptomatic cares (if applicable) including appropriate and responsible use, followup plan, and return precautions. The patient verbalized understanding and felt safe for discharge. Medical Records I reviewed the patient's medical records. Lab Data I reviewed the patient's lab results. Discharge Plan Discharge Patient Disposition: Home Clinical Impression: Post-op bleeding Condition: Stable Prescriptions: No Action glipizide 2.5 mg tablet extended release 24hr 2.5 mg PO DAILY hydrochlorothiazide 12.5 mg capsule 12.5 mg PO DAILY irbesartan 150 mg tablet 150 mg PO DAILY rosuvastatin [Crestor] 40 mg tablet 40 mg PO DAILY omeprazole 20 mg capsule,delayed release(DR/EC) 20 mg PO DAILY aspirin [Adult Aspirin Regimen] 81 mg tablet,delayed release (DR/EC) 81 mg PO DAILY Centrum Silver Ultra Men's 300-600-300 mcg tablet 1 tab PO DAILY (DME) Intraoperative neuromonitoring See Rx Instructions .[place] [place] Qty: 1 0RF Rx Instructions: As directed (DME) Bone Growth Stimulator E0748 See Rx Instructions .Route .MEDSUPPLY Qty: 1 0RF Rx Instructions: As directed hydrocodone-acetaminophen 5-325 mg Tablet 1 - 2 tab PO Q4H PRN (Reason: Moderate To Severe Pain) Qty: 40 0RF Discharge Orders: Discharge ED (Routine); Ordered 05/31/22 Ordered By: Dajuan Dimas Referrals: Lena Benedict [Primary Care Provider] - Discharge Diet: Usual diet Discharge Activity: Limit activity as instructed Activity Restrictions/Additional Instructions: Thank you for visiting the emergency department. You were seen and evaluated for concern over postoperative bleeding. The dressing was replaced and I recommend follow-up in clinic tomorrow. Please follow all precautions and instructions given to you at time of discharge. Return to the emergency department for lightheadedness, dizziness, chest pain, shortness of breath, recurrent bleeding, or anything else that you are concerned about a feel needs emergency department evaluation. Coding Level of Care Code ED Operations Intelligence for Dilia Fwbjorn Exam Comprehensive
[2022-05-31 17:17] VITALS: BP 113/59; PULSE 107; RESP 16; TEMP 36.8; O2SAT 90; BMI 27.3
--- NOTE | 2022-05-31 17:33 | PC.NURSE ---
PT DRESSING CHANGED WITH SILVERLON DRESSING AFTER CLEANSING SITE
[2022-05-31 17:39] VITALS: BP 113/59; PULSE 91; RESP 16; O2SAT 93
[2022-05-31 17:43] VITALS: BP 113/59; PULSE 91; RESP 16; O2SAT 93
== END 2022-05-31 17:45 | disposition home or self-care (01) ==
PROVIDERS: Emergency Provider Emergency Medicine; PCP Nurse Practitioner Family
DX: L76.22 Postprocedural hemorrhage of skin and subcutaneous tissue following other procedure (principal); Z79.82 Long term (current) use of aspirin; Z79.84 Long term (current) use of oral hypoglycemic drugs; Z87.891 Personal history of nicotine dependence; E11.9 Type 2 diabetes mellitus without complications; Z95.0 Presence of cardiac pacemaker; I10 Essential (primary) hypertension
CPT/HCPCS: 99282

== ENCOUNTER → 2022-06-06 08:58 | Outpatient (BNVA) | payer MEDICARE, SELFPAY | PROVIDERS: PCP Nurse Practitioner Family; Visit Provider Physician Assistant | DX: Z98.1 Arthrodesis status (principal) | CPT/HCPCS: 99024 ==

== ENCOUNTER → 2022-06-27 08:56 | Outpatient (BNVA) | payer MEDICARE, SELFPAY | PROVIDERS: PCP Nurse Practitioner Family; Visit Provider Physician Assistant | DX: Z98.1 Arthrodesis status (principal); M48.062 Spinal stenosis, lumbar region with neurogenic claudication | CPT/HCPCS: 72100; 99024 ==

== ENCOUNTER → 2022-07-11 13:40 | Outpatient (BNVA) | payer MEDICARE, SELFPAY | PROVIDERS: PCP Nurse Practitioner Family; Visit Provider Physician Assistant | DX: Z98.1 Arthrodesis status (principal) | CPT/HCPCS: 72100; 99024 ==

== ENCOUNTER → 2022-08-10 13:31 | Outpatient (BNVA) | payer MEDICARE, SELFPAY | PROVIDERS: PCP Nurse Practitioner Family; Visit Provider Physician Assistant | DX: Z98.1 Arthrodesis status (principal) | CPT/HCPCS: 72100; 99024 ==

== ENCOUNTER → 2022-11-01 10:15 | Outpatient (BNVA) | payer MEDICARE, SELFPAY | PROVIDERS: PCP Nurse Practitioner Family; Visit Provider Nurse Practitioner Family | DX: I10 Essential (primary) hypertension (principal); Z95.2 Presence of prosthetic heart valve; Z95.0 Presence of cardiac pacemaker; Z87.891 Personal history of nicotine dependence | CPT/HCPCS: 99214 ==

== ENCOUNTER → 2022-11-22 13:41 | Outpatient (BNVA) | payer MEDICARE, SELFPAY | PROVIDERS: PCP Nurse Practitioner Family; Visit Provider Internal Medicine Cardiovascular Disease | DX: I42.8 Other cardiomyopathies (principal); Z95.2 Presence of prosthetic heart valve; E78.5 Hyperlipidemia, unspecified; E11.9 Type 2 diabetes mellitus without complications; Z95.0 Presence of cardiac pacemaker; G47.30 Sleep apnea, unspecified; I10 Essential (primary) hypertension; Z87.891 Personal history of nicotine dependence; Z79.84 Long term (current) use of oral hypoglycemic drugs | CPT/HCPCS: 99214 ==

== ENCOUNTER → 2023-02-14 09:33 | Outpatient (BNVA) | payer MEDICARE, SELFPAY | PROVIDERS: PCP Nurse Practitioner Family; Visit Provider Internal Medicine Cardiovascular Disease | DX: E78.5 Hyperlipidemia, unspecified (principal) | CPT/HCPCS: 36415; 80061; 80076 ==

== ENCOUNTER → 2023-02-20 09:42 | Outpatient (BNVA) | payer MEDICARE, SELFPAY | PROVIDERS: PCP Nurse Practitioner Family; Visit Provider Physician Assistant | DX: Z98.1 Arthrodesis status (principal) | CPT/HCPCS: 72110; 99213 ==

== ENCOUNTER 2023-03-12 14:04 | Outpatient (CLI) | payer MEDICARE, SELFPAY ==
--- NOTE | 2023-03-12 14:21 | CT_ITS ---
WS: [id number] CT HEAD TECHNIQUE: Noncontrast CT of the head obtained from the skullbase to the vertex. CLINICAL INFORMATION: Headache COMPARISON: None. DLP: 1082.[address] scans at [facility] use at least one of these dose optimization techniques: automated e xposure control; mA and/or kV adjustment per patient size (includes targeted exams where dose is matc hed to clinical indication); or iterative reconstruction. FINDINGS: No evidence of intracranial hemorrhage or mass effect. Ventricular system and basal cisterns are figueroa nt. Moderate to advanced small vessel changes with moderate parenchymal volume loss. No extra-axial f luid collections. No evidence of mass or mass effect. Benign basal ganglia calcifications. Intracrani al vascular calcification. Paranasal sinuses and mastoid air cells are well aerated. .Normal visualized soft tissues. IMPRESSION: 1. No evidence of intracranial hemorrhage or mass effect. 2. Moderate to advanced small vessel changes with moderate parenchymal volume loss. 3. Intracranial vascular calcification. 4. No acute intracranial findings.
== END 2023-03-12 14:05 | disposition home or self-care (01) ==
LOC: RAD 14:05
PROVIDERS: PCP Nurse Practitioner Family; Visit Provider Nurse Practitioner Family
DX: R51.9 Headache, unspecified (principal); I67.2 Cerebral atherosclerosis
CPT/HCPCS: 70450

== ENCOUNTER → 2023-07-06 15:38 | Outpatient (BNVA) | payer MEDICARE, SELFPAY | PROVIDERS: PCP Nurse Practitioner Family | DX: Z45.010 Encounter for checking and testing of cardiac pacemaker pulse generator [battery] (principal) | CPT/HCPCS: 93296 ==

== ENCOUNTER → 2024-01-23 12:01 | Outpatient (BNVA) | payer MEDICARE, SELFPAY | PROVIDERS: PCP Nurse Practitioner Family; Visit Provider Internal Medicine Cardiovascular Disease | DX: Z45.010 Encounter for checking and testing of cardiac pacemaker pulse generator [battery] (principal) | CPT/HCPCS: 93296 ==